=== PATIENT | male | born 1960 | race Caucasian/White ===

== ENCOUNTER 2019-09-19 16:42 | Emergency (ER) | payer SELFPAY ==
[~2019-09-19] VITALS: Ht 185.4 cm; Wt 158.8 kg
[2019-09-19 16:42] VITALS: BP 157/83
== END 2019-09-19 17:23 | disposition left against medical advice (07) ==
LOC: ER 16:42
DX: M79.606 Pain in leg, unspecified (principal); Z53.21 Procedure and treatment not carried out due to patient leaving prior to being seen by health care provider

== ENCOUNTER 2019-09-20 23:05 | Emergency (ER) | payer SELFPAY ==
[~2019-09-20] VITALS: Ht 177.8 cm; Wt 158.8 kg
[2019-09-20 23:06] VITALS: BP 144/64
--- NOTE | 2019-09-21 00:05 | PHYS DOC ---
Past Medical History Past Medical History: No Pertinent History Additional Past Medical Histor: PT DENIES. (KENY DALLAS APRN) Additional Past Surgical Histo: PT DENIES. (KENY DALLAS APRN) Alcohol Use: Occasionally Drug Use: None (KENY DALLAS APRN) Attending Signature I have participated in the care of this patient and I have reviewed and agree with all pertinent clinical information above including history, exam, and recommendations. (RODRIGO CLARK MD) Adult General Chief Complaint Chief Complaint: FOOT INJURY PAIN HPI HPI Patient is a 58 year old male patient who presents to the ED today complaining of moderate pain to bilateral feet from walking that has been going on for days. Patient reports he is homeless. Denies any injury. He reports his pain is worse on walking. He states he is very tired right now, currently sleeping. He was in the ED yesterday and refused to be evaluated. (KENY DALLAS APRN) Review of Systems Review of Systems Constitutional: Denies fever or chills [] Eyes: Denies change in visual acuity, redness, or eye pain [] HENT: Denies nasal congestion or sore throat [] Respiratory: Denies cough or shortness of breath [] Cardiovascular: No additional information not addressed in HPI [] GI: Denies abdominal pain, nausea, vomiting, bloody stools or diarrhea [] : Denies dysuria or hematuria [] Musculoskeletal: Reports bilateral feet pain Integument: Denies rash or skin lesions [] Neurologic: Denies headache, focal weakness or sensory changes [] All other systems were reviewed and found to be within normal limits, except as documented in this note. (KENY DALLAS APRN) Allergies Allergies Allergies Coded Allergies Type Severity Reaction Last Updated Verified No Known Drug Allergies 09/19/19 No (RODRIGO CLARK MD) Physical Exam Physical Exam Constitutional: Well developed, well nourished, no acute distress, non-toxic appearance. [] HENT: Normocephalic, atraumatic, bilateral external ears normal, oropharynx moist, no oral exudates, nose normal. [] Eyes: PERRLA, EOMI, conjunctiva normal, no discharge. [] Neck: Normal range of motion, no tenderness, supple, no stridor. [] Cardiovascular:Heart rate regular rhythm, no murmur [] Lungs & Thorax: Bilateral breath sounds clear to auscultation [] Abdomen: Bowel sounds normal, soft, no tenderness, no masses, no pulsatile masses. [] Skin: Warm, dry, no erythema, no rash. [] Back: No tenderness, no CVA tenderness. [] Extremities: Bilateral feet are reddened, dirty, very smelly, long dirty toenails. Patient is smelling. Negative Homans sign bilaterally Neurologic: Alert and oriented X 3, normal motor function, normal sensory function, no focal deficits noted. [] Psychologic: Flat affect, very unkept, smelling (KENY DALLAS APRN) Current Patient Data Vital Signs Vital Signs Date Time Temp Pulse Resp B/P (MAP) Pulse Ox O2 Delivery O2 Flow Rate FiO2 09/20/19 23:06 97.9 77 22 144/64 (90) 97 Room Air 97.9 (RODRIGO CLARK MD) EKG EKG [] (KNEY DALLAS APRN) Radiology/Procedures Radiology/Procedures [] (KENY DALLAS APRN) Course & Med Decision Making Course & Med Decision Making Pertinent Labs and Imaging studies reviewed. (See chart for details) This is a 58-year-old male patient presenting to the ED today complaining of bilateral feet swelling and pain from walking long hours. Patient is homeless. Meets MSE criteria. He left. (KENY DALLAS APRN) Dragon Disclaimer Dragon Disclaimer This electronic medical record was generated, in whole or in part, using a voice recognition dictation system. (KENY DALLAS APRN) Departure Departure Impression: Primary Impression: Homeless Additional Impression: Foot pain, bilateral Disposition: HOME, SELF-CARE Condition: STABLE Referrals: NO PCP (PCP) follow up with a railway shunter ROBERTO CARLOS CUEVAS DPM Problem Qualifiers KENY DALLAS APRN Sep 21, 2019 00:05 RODRIGO CLARK MD Sep 22, 2019 07:50
== END 2019-09-21 01:00 | disposition home or self-care (01) ==
LOC: ER 23:05
DX: M79.671 Pain in right foot (principal); M79.672 Pain in left foot; Z59.0 Homelessness
CPT/HCPCS: 99284